=== PATIENT | male | born 1945 | race Caucasian/White ===

== ENCOUNTER 2021-04-24 15:23 | Inpatient (IN) | payer MEDICARE ==
[~2021-04-24] VITALS: Ht 193 cm; Wt 86.4 kg
--- NOTE | 2021-04-25 02:58 | NUR ---
Arrived on [facility] floor via stretcher accompanied by x1 staff from [facility] and transferred to Bed 527B. Admitting DX: Dementia with Behavior Disturbances. Patient is a DNR and his DPOA is his daughter, Aleyda. [phone]'s in in the hospital for Pneumonia. Patient has been having visual hallucinations and is able to verbalize memory loss and problems speaking. When he answers a question or verbaizes an idea, he starts to speak, he starts a word then does not complete the word or the sentence Patient comes to us from [facility], and his doctor noted AMS with Frontal Lobe Dementia. Patient cannot care for himself. Wears glasses, Does not have dentures or hearing aides. Patient has not been eating well or sleeping well. Patient has Burgandy colored bruises on his forearms. Right great toe has a short cut running from medial to the nail. Toenails are long and yellow. Scar on spine from back surgery (fusion). HX of cataract surgery bilat, EGD ablation of Barrets Esophagus. GERD, Glaucoma, Hyperlipidemia. Hyperplasia of Prostate, Lower Urinary tract Symptoms, Nocturnia, Orchalgia, TIA. Repeatedly asks for who is in the hospital for pneumonia. Currently considered a high fall risk until evaluated for stability. Fully vacinated for Covid. Continent of bladder, gets up impulsively, but is redirectable. Orders and medications entered.
[2021-04-25 08:15] VITALS: BP 105/69
[2021-04-25 11:08] VITALS: BP 105/69
--- NOTE | 2021-04-25 17:15 | NUR ---
MCKAYLA and Dr. Powers attempted to call Aleyda concerning the Pt. Aleyda did not answer, a message was left requesting a call back. As of this note MCKAYLA has not recieved a call
--- NOTE | 2021-04-25 19:54 | NUR ---
Assumed pt care from overnight shift this am. Pt presented alert and oriented to self only during this time, and was walking around unit shirtless, screaming and yelling, after having flipped tables in activity area and cursing at staff. Pt presented with delusions of being in senior care and being held hostage. Pt asked where his was during this time, and could not be reoriented despite staff reassurances and information about his who is in hospital with pneumonia right now but recovering per report of DPOA, who is his daughter. Pt presented with severe agitation and continued to curse at staff. Refused po xanax from night court magistrate RN, and has been given haldol IM 5 mg, but did not stop moving without walker, throwing things, and presenting with anxiety about . Order obtained for 1.5 ativan at this time to help prevent pt from harm to self and others. Lap kentrell obtained at this time as well. Pt held with manual hold for IM injection. Lap kentrell ordered to prevent pt from harm and fastened in back. Pt fed by staff during breakfast, with staff helping cut his breakfast and snacks. Medication that was scheduled was given crushed in pudding during this time, and taken by pt. Pt slept after this time, and was unable to answer orientation questions. No hi/si statements were made. Pt noted to talk to self while in gerichair. Pt lung sounds clear. Bowel sounds active. Pt remained calm until afternoon. Lap kentrell unfastened for several hours as pt slept, but pt started to once again become violent, and aggressive, pushing table, chairs, and staff while yelling. Pt given IM haldol and ativan for this as pt started to swing at staff. Lap kentrell refastened for hour after this to help prevent pt from harm. Pt daughter and DPOA called on this shift. Daughter states that she was not aware of visiting policy and states "I don't know why you all are not over this COVID thing" in regard to voicing frustrations about not being able to visit her father. Assured daughter that COVID precautions were in place for pt safety. Daughter stated that she works on geriatrics and does not see why family cannot visit but acknowleged policy during this time and was able to ask for update on father's status at this time. Update given by this nurse and Dr. Powers, whom daughter also talked to in order to alleviate concerns and anxiety. Pt presents calm at this time. Did not want to eat dinner, not did pt taken dinner medication as pt was asleep at that time. Has been in gerichair with no lap kentrell and remains calm without issues. No further concerns at this time.
--- NOTE | 2021-04-26 01:18 | NUR ---
At onset of glass vial filler pt was sleeping in timothy chair in day room, at this time pt was lerthargic from receiving two injections earlier in the day. ammunition specialist placed pt into bed shortly after glass vial filler started. RN talked to pt while he was lying in bed. Pt's eyes were closed, but pt did talk to RN. Pt refused to eat medication crushed in pudding. RN explained to pt the pudding contained his bedtime medication and pt still refused. Pt refused physical assessment. Pt's speech was difficult to understand, but pt stated he wanted to see his . RN explained to pt that his is being cared for. Pt's tone was irritable when talking with RN. So signs of SI or HI. Pt has a dry cough. Pt is a high fall risk. Fall precautions are in place. Will continue to monitor.
[2021-04-26 07:49] VITALS: BP 105/64
[2021-04-26 14:49] VITALS: BP 105/64
--- NOTE | 2021-04-26 15:37 | NUR ---
Resummed cares @0700: Patient was located in the dinning area, seated in a timothy-chair. No S/O acute distress noted. A&O*2 - confused. Patient denied Pain, SOB, CP. V/S present hypotensive, otherwise stable. A dry cough is present, patient verbalized to PIPE OUT WORKER "It's nothing new." C/O of anxiety, patient verbalized feeling increasingly anxious about his . Patient states he is concerned about her, because he has not heard from her. Denied SI/HI/AVH. Ambulates with a walker and standby assist. Patients gait visualized shuffled, with weakness verbalized. High-fall risk precautions are in place, will continue to monitior per [facility] protocol.
--- NOTE | 2021-04-26 16:23 | NUR ---
MCKAYLA was able to speak with the Pt's DPOA/Daughter, Lea Goetz [phone]. Lea stated she needed the Pt's security code, MCKAYLA did provide the code. Lea did provide some background on the Pt. The family is currently looking for placement for the Pt and his in a AL facility. Lea has been touring [facility] at this time. The Pt's is currently in a SNF placement. There were no other questions or concerns at this time. MCKAYLA will continue to follow
[2021-04-26 19:50] VITALS: BP 127/83
--- NOTE | 2021-04-26 22:45 | H ---
[facility] [place] [address] HISTORY AND PHYSICAL Name: FILIPE SAMAYOA Room #: 527B-B ADM IN M.R.#: [id number] Admission: 04/25/21 Attend Phys: Geovanny Powers DO Discharge: Date of : 47 Report #: [id number] THIS REPORT FOR: cc: Anatoliy Bourgeois MD, Khanh MD Kerstein, Andrew H. DO ~ DATE OF SERVICE: 04/25/2021 INPATIENT PSYCHIATRIC EVALUATION ATTENDING PSYCHIATRIST: Geovanny Powers DO MEDICAL CONSULTANTS: Kareen Huffman APRN and Brayan Raman MD and his hospitalist team. REASON FOR ADMISSION: The patient had been hospitalized at [facility], [facility] specifically. Since 04/19, he was having agitated, aggressive behavior and referred for psychiatric admission. HISTORY OF PRESENT ILLNESS: A 75-year-old demented male, community dwelling, residing with his , admitted were both at [facility]. Apparently, he was septic with spinal meningitis, dementia diagnosis dates back to at least 05/20/2020. He was started on quetiapine that was stopped back in January. Medical problems include Jimenez's esophagus, family history of prostate cancer, GERD, glaucoma, hyperlipidemia, hyperplasia of prostate, impotence of organic origin, I guess that is an acronym for erectile dysfunction, nocturia, otalgia, painful testes and transient ischemic attacks. SURGICAL HISTORY: Includes back surgery, cataract extraction bilateral, EGD with radiofrequency ablation of Jimenez's, hernia repair, right hip arthroplasty, right hernia, incisional mass, in 2019 tonsillectomy and vasectomy, former smoker, quit in 1977; drank a can of beer per week but I do not think he drank recently. MEDICATIONS: Meds prior to [facility]'s admission were Tylenol, Uroxatral, Xanax, vitamin B12, Proscar, Percocet, Protonix, Lyrica, Seroquel, Zocor. Apparently, he has had a year of progressive visual hallucinations, seeing people as well as delusions. I do not know that Lewy body diagnosis has been made. He was seen on 02/18 by Neruologist, was on donepezil and memantine which was of no benefit, tried on Seroquel, but made delusions worse. In the past year, he had neuropsych testing at and according to the daughter that showed frontal dementia. He is incontinent of urine. he had a CT, this is actually from 05/03/2019 showed mild generalized cerebral and cerebellar volume loss, [facility] [address] [place] [address] HISTORY AND PHYSICAL Name: DANITAFILIPE B Room #: 527B-B [facility] IN M.R.#: [id number] Admission: 04/25/21 Attend Phys: Geovanny Powers DO Discharge: Date of : 47 Report #: [id number] periventricular hypoattenuation. MRI was done on 03/30/2019 showed multifocal and ventricular prominence consistent with generalized volume loss. His daughter did visit him at [facility] quite a bit. He had to be convinced that his was in good shape. It looks like Dr. Lara came in and saw him. REVIEW OF SYSTEMS: Not obtainable today. The patient could only say "hi", withdrawal to pain. He had required several IMs for aggressive behavior unfortunately, I never witnessed. These were all calls from the nurses. We will go ahead and read the nurse's note from today. Became aggressive, exit seeking, turning over tables in dayroom, refuse p.o. medications. This was documented this morning. So, I would think the afternoon note, I did not see him, but it is essentially the same, I imagine. PHYSICAL EXAMINATION: VITAL SIGNS: Today, temperature 35.9, pulse 79, respirations 18, BP 105/60, O2 sat 97%. MUSCULOSKELETAL: In Margot chair, sedated, disheveled, from IM's earlier. MENTAL STATUS EXAMINATION: Well-developed, ill-appearing male, appearing at least stated age. Attention impaired. Concentration impaired. Speech: One word or two, but really could not assess further for auditory, visual, or tactile hallucinations, hopelessness, helplessness. Mood constricted, congruent. Memory known to be impaired. Insight is impaired and judgment is impaired. Fund of knowledge likely below average. FORMULATION: A 75-year-old male admitted for impulsive behaviors likely progressive dementia Lewy body, this is certainly in the differential. DIAGNOSES: At this time, major neurocognitive disorder, likely Lewy body, but cannot say for sure. Medical comorbidities include hyperlipidemia, benign prostatic hypertrophy, gastroesophageal reflux disease, Jimenez's esophagus. PLAN: Admitted via [facility]. We will evaluate, stabilize, obtain collateral. MEDICATIONS: Atorvastatin 10 mg at bedtime, Lyrica 150 mg p.o. b.i.d., finasteride 5 mg p.o. daily, cyanocobalamin 1000 mcg oral daily, aspirin 81 mg oral daily, Protonix 40 mg p.o. b.i.d. I will go ahead and start him on olanzapine 2.5 mg p.o. b.i.d. given his need for injection today. We will hope he does better in the next several days. ESTIMATED LENGTH OF STAY: 10-14 days. STRENGTHS: He is insured. [facility] [address] [place] [address] HISTORY AND PHYSICAL Name: FILIPE SAMAYOA Ralph Room #: 527B-B ADM IN M.R.#: [id number] Admission: 04/25/21 Attend Phys: Geovanny Powers DO Discharge: Date of : 47 Report #: [id number] WEAKNESSES: Needs placement, does not have a placement, currently still hospitalized at [facility]. <ELECTRONICALLY SIGNED> By: Geovanny Powers DO 04/26/21 [id number] 1802 Geovanny Powers, /nt
--- NOTE | 2021-04-27 03:11 | NUR ---
At onset of shift supervisor rn pt was sitting in timothy chair in day room. Pt did have his legs up on the table. RN assisted pt in repositioning the patient. This shift pt was alert and oriented only to self. Pt gave the date as "28" and stated he was in a library. Pt took his medication whole and was compliant with vital signs. No signs of SI or Hi. Pt was placed into bed by FILTRATION PLANT MECHANIC's. Pt was found out of bed using the commode. Pt was restless in bed at times and required repositioning. Pt is high fall risk. Fall precautions in place. Will continue to monitor.
[2021-04-27 09:48] VITALS: BP 120/81
--- NOTE | 2021-04-27 09:59 | NUR ---
New admit to [facility] for dementia with behavioral disturbances. Hx HLD, frontal lobe dementia, B12 deficiency. Intake is good as long as not aggitated. Wt status adequate. On B12 supplementation. Presents at low nutrition risk at this time
--- NOTE | 2021-04-27 11:23 | NUR ---
MCKAYLA and Dr. Powers spoke with Lea concerning discharge. An update was given on the Pt. Lea stated she has been looking at two facilites for placement of the Pt and his . Lea stated the Pt could return home with her until she is able to finalize placement. Discharge was set for 04/30/2021 @ 1300. Lea will pick the Pt up for transport to the home.
[2021-04-27 13:10] VITALS: BP 120/81
--- NOTE | 2021-04-27 14:27 | NUR ---
Spoke with Patients DPOA Lea @1415: Gave DPOA an update on patient and spoke in regards to the patients status. KENYATTA and the DPOA had about a 10 minute conversation, in which we spoke about the patient and his talking on the phone this afternoon. After much conversation, KENYATTA will Facetime the DPOA per consents for the patient to be able to see and speak to his . KENYATTA believes speaking wiht the and seeing that the is "okay" as she is also currently hospitalized in another hospital. Will benefit the patients overall care.
[2021-04-27 19:51] VITALS: BP 111/69
--- NOTE | 2021-04-28 03:01 | NUR ---
At onset of rn shift mgr pt was sitting in timothy chair in day room. This shift pt was alert and oriented only to self. Pt was compliant with medication and vital signs. Pt's olzanzpine was increased to 5mg, but RN gave the original 2.5 mg order before the new order was received. This RN called Sheri Veliz and received a one time dose of 2.5 zyprexa to equal 5mg. Overall pt received 5mg of zyprexa. Pt believed he was in a bank. Pt did talk about how he spoke to his earlier in the day. Pt remains confused, disorganized and forgetful, but pt is calm and pleasant with staff. No signs of SI and HI. Pt was not observed responding to internal stimuli. Pt was observed at 0300 sitting up in bed, trying to remove his hospital bracelets. Pt is a high fall risk. Fall precautions are in place. Will continue to monitor.
[2021-04-28 10:46] VITALS: BP 97/61
[2021-04-28 12:15] VITALS: BP 97/61
--- NOTE | 2021-04-28 15:59 | NUR ---
Resummed cares @0700: Patient was located in the dinning area, seated into a GeriChair watching TV with his peers. The patient appears sleepy, and drowsy. No S/O acute distress noted. Patient denied SI/HI/AVH. Denied SOB, CP & Pain. The patients C/O "I'm just sad, I miss my ." The patient has been getting up and walking to and from the restroom with a walker and GaitBelt. PT has been by to see the patient today. ROLL UP OPERATOR has cared for patient the past 2 days, and has noted the patient being more communicative, and pleasent. V/S present Hypotensive; otherwise stable. Verbalized having some anxiety, in regards to when he will be able to go home. A&O*2 - forgetful, confused. High-fall precautions are in place. Will continue to monitior per [facility] protocol.
[2021-04-28 20:09] VITALS: BP 128/57
--- NOTE | 2021-04-29 01:09 | NUR ---
At beginning of shift, patient was seated in the day room. He has been calm and cooperative with care and is med-compliant. He is oriented to self and within 3 days of the correct date. Disoriented to place and situation. He expressed wanting to see/talk to his . Explained to patient that visitors are not allowed in at this time, but he may talk with her on the phone. Affect is sad, and eye contact is limited. Patient appears to be paranoid/delusional at times. At one point, he asked "What are you doing? You going to rip this lyric off?" Patient is easily redirected and is pleasant in interactions with staff and peers. No hallucinations observed this shift. Patient does not express any SI/HI. No complaints of pain. Encouraged patient to verbalize needs.
[2021-04-29 09:00] VITALS: BP 105/72
[2021-04-29 10:28] VITALS: BP 105/72
--- NOTE | 2021-04-29 11:02 | NUR ---
Resummed cares @0700: Patient located in th dinning room seated in chair. No S/O acute distress. V/S present hypotensive, otherwise stable. Denied Pain, CP. Verbalized having SOB when ambulating. Stated having some anxiety, when asked why patient states " Same thing that is or isn't." When asked is he was feeling depressed today, he said "Yes, Just about what all I am missing." Patient is continualy been more verbal with staff, ambulating more with his walker, and has had a change in his overall behaviors. A&O*1/2 - forgetful and intermittently has increased confusion. C/O of burning during Urination, MD Raman informed during rounds for a UA order. High-Fall precautions are in place: Gait shuffled, Strong. Will continue to monitior per [facility] Protocol.
[2021-04-29 14:48] LABS: URINE BILIRUBIN NEGATIVE (Negative); URINE BLOOD NEGATIVE (Negative); URINE CLARITY CLEAR; URINE COLOR YELLOW; URINE GLUCOSE-RANDOM* NEGATIVE (Negative); URINE KETONES NEGATIVE (Negative); URINE LEUKOCYTES-REFLEX NEGATIVE (Negative); URINE NITRITE-REFLEX NEGATIVE (Negative); URINE PROTEIN (DIPSTICK) NEGATIVE (Negative); URINE UROBILINOGEN 0.2 E.U./dl (0.2-1.0)
[2021-04-29 19:30] VITALS: BP 113/70
--- NOTE | 2021-04-30 04:58 | NUR ---
At onset of shift, patient was sitting in the day room. Staff assisted him to bed since he appeared very drowsy. He is oriented to self, but was unable to answer other nursing assessment questions. Patient slept for a little while, and then woke up and got out of bed. Staff responded to bed alarm and RN and LOCK PLATER helped him change his brief. Patient became somewhat combative, grabbing RN's arm and hands. Staff was able to change him and help him calm down. Patient took his PO meds and went back to sleep. No AVH observed this shift. Patient did not voice SI/HI. No complaints of pain. vital signs stable this shift. Lungs clear to auscultation. Will continue to monitor for safety. Patient is on fall precautions.
[2021-04-30 08:00] VITALS: BP 80/53
[2021-04-30 09:00] VITALS: BP 80/53; BP 97/62
--- NOTE | 2021-04-30 10:26 | NUR ---
Assumed pt care this morning from overnight shift. Pt presented alert and oriented to self only during this time and was slightly anxious but cooperative. Pt noted to be moving legs and fidgeting at this time. Pt given breakfast prior to assessment, and participated in physical therapy to help with this restlessness. Ambulated with physical therapist then repositioned in chair. Medication given at this time and well tolerated. PRN tylenol given due to prior ambulation with physical therapist. Slight anxiety still noted. No depression voiced. When asked about si/hi, pt stated no and shook head. Asked about hallucinations, but pt stared at staff and asked instead when he could go home. Pt intitially scheduled to leave for home today, but discharge delayed per request of daughter, KIRSTEN. Informed pt of this. Pt unable to voice understanding at this time despite staff reiteration. Pt noted to be speaking to self during assessment and still fidgeting. Pt redirected to use walker when walking and repositioned in chair as pt was still fidgeting at times. Redirected to stay in gerichair several times. Lung sounds clear. Bowel sounds active. No further concerns at this time.
--- NOTE | 2021-04-30 17:45 | NUR ---
MCKAYLA and Dr. Powers called Lea concerning the discharge. A nessage was left requesting a call back. As of this not Lea has not returned the call.
[2021-04-30 19:40] VITALS: BP 109/70
[2021-04-30 20:26] VITALS: BP 109/70
--- NOTE | 2021-04-30 21:57 | NUR ---
[facility] WAS RESUMED AT 1900. HE WAS AT THE [facility] AREA ON A RECLINER. HE IS ABLE TO VERBALIZE HIS NEEDS. LUNGS ARE CLEAR BS ACTIVE X4 QUADS. HE DENIES SI/AVH/HI.HE TRIES TO GET OUT OF CHAIR AND TO CRWAL UNDER THE TABLE.NURSES ASSISTED HIS BACK TO CHAIR. HE IS CONTINET OF BOWEL AND BLADDER. YELLOW TOP AND SOCKS ARE ON
== END 2021-05-01 | DRG 57 ==
LOC: SBH
PROVIDERS: Hospitalist; ADMIT Psychiatry & Neurology Psychiatry; ATTEND Psychiatry & Neurology Psychiatry
DX: G30.9 Alzheimer's disease, unspecified (principal); F01.51 Vascular dementia, unspecified severity, with behavioral disturbance; F02.81 Dementia in other diseases classified elsewhere, unspecified severity, with behavioral disturbance; Z96.641 Presence of right artificial hip joint; K21.9 Gastro-esophageal reflux disease without esophagitis; E78.5 Hyperlipidemia, unspecified; N40.0 Benign prostatic hyperplasia without lower urinary tract symptoms; G62.9 Polyneuropathy, unspecified; F41.9 Anxiety disorder, unspecified; Z20.822 Contact with and (suspected) exposure to COVID-19; F29 Unspecified psychosis not due to a substance or known physiological condition; E53.8 Deficiency of other specified B group vitamins; Z66 Do not resuscitate; Z98.42 Cataract extraction status, left eye; Z98.41 Cataract extraction status, right eye; Z86.73 Personal history of transient ischemic attack (TIA), and cerebral infarction without residual deficits; Z98.52 Vasectomy status; Z80.42 Family history of malignant neoplasm of prostate; Z81.8 Family history of other mental and behavioral disorders; Z87.891 Personal history of nicotine dependence; Z23 Encounter for immunization
CPT/HCPCS: 10880

== ENCOUNTER 2021-04-24 18:26 | Emergency (ER) | payer MEDICARE ==
[~2021-04-24] VITALS: Ht 188 cm; Wt 93.4 kg
[2021-04-25 00:06] VITALS: BP 132/74
== END 2021-04-25 00:07 ==
LOC: ER 18:26
PROVIDERS: Emergency Medicine
DX: F03.90 Unspecified dementia, unspecified severity, without behavioral disturbance, psychotic disturbance, mood disturbance, and anxiety (principal); Z20.822 Contact with and (suspected) exposure to COVID-19